=== PATIENT | female | born 1995 | race Caucasian/White ===

== ENCOUNTER 2020-03-05 10:41 | Outpatient (RCR) | payer OTHER, SELFPAY | END 2020-06-03 23:59 | disposition home or self-care (01) | LOC: ANHLAB 10:41 | PROVIDERS: Visit Provider Advanced Practice Midwife | DX: O46.90 Antepartum hemorrhage, unspecified, unspecified trimester (principal); Z3A.00 Weeks of gestation of pregnancy not specified | CPT/HCPCS: 36415; 85461 ==

== ENCOUNTER 2020-03-23 12:56 | Emergency (ER) | payer OTHER, SELFPAY ==
[2020-03-23 13:16] VITALS: BP 135/85; PULSE 78; RESP 20; TEMP 36.6; O2SAT 100
--- NOTE | 2020-03-23 13:16 | ED.GENADULT ---
HPI - General Adult General Chief complaint: Extremity Injury, Upper Stated complaint: Extremity injury, upper Time Seen by Provider: 03/23/20 13:17 Source: patient Mode of arrival: ambulatory Limitations: no limitations History of Present Illness HPI narrative: 25-year-old female patient presents to the [facility] with complaints of a fishhook that got caught into her right upper arm early this morning while fishing. Patient states that they did get the hook out last night however she states that she is about 8 or 9 weeks and knows that her tetanus is outdated and wanted a tetanus shot today. Patient states that she was fishing and that the hope that did get caught into her arm had been in the [place] along with being in the current fish that they had caught. Patient states was as they are trying to get the fish off 1 of the hooks came and embedded into her right upper arm. Patient denies any fevers, body aches or chills. Patient states she cleaned the area with peroxide and put a little antibiotic ointment on it last night. Related Data Allergies Allergy/AdvReac Type Severity Reaction Status Date / Time No Known Allergies Allergy Verified 03/23/20 13:19 Review of Systems Review of Systems: Narrative: CONSTITUTIONAL: Denies fever, chills, or sweats. EYES: Denies visual changes, redness, or discharge. ENT: Denies rhinorrhea, congestion, sore throat, or otalgia. CARDIOVASCULAR: Denies chest pain, palpitations, or edema. RESPIRATORY: Denies cough or dyspnea. GASTROINTESTINAL: Denies abdominal pain, nausea, vomiting, or diarrhea. GENITOURINARY: Denies dysuria or hematuria. SKIN: Denies rash or itching. Positive wound to right upper arm from fishhook MUSCULOSKELETAL: Denies back pain, joint pain, or myalgia. NEUROLOGIC: Denies headache, numbness, or weakness. PSYCHIATRIC: Denies anxiety or depression. PMFSH Social History Social History Gender identity (if verbalized by the patient): Female Comments At the time of my signature I agree with nursing past medical history, surgical, social, and family history. There is no relevant family history pertinent to the presenting complaint. Exam Narrative: Exam Narrative: GENERAL: Well-appearing, well-nourished, and in no acute distress. HEAD: Normocephalic, atraumatic. EYES: PERRLA and EOMI. ENT: Nares clear, no rhinorrhea or epistaxis. Mucous membranes moist. NECK: Supple. No lymphadenopathy CHEST: Clear to auscultation. No respiratory distress. HEART: Regular rate and rhythm. No murmur heard. Normal peripheral pulses. ABDOMEN: Soft, nontender, nondistended, normal active bowel sounds. EXTREMITIES: Normal range of motion. No edema. SKIN: Warm, dry, no rash. Patient has 2 puncture [place] noted to the right upper extremity on the inner aspect of the right upper arm. There is slight redness noted but no warmth. No discharge noted. On palpation there is no evidence of a foreign body. No pain on palpation and patient has excellent range of motion of the arm. NEURO: No focal deficits. Alert and oriented x3. Course Vital Signs Vital signs: Vital Signs Temperature 36.6 C 03/23/20 13:16 Pulse Rate 78 03/23/20 13:16 Respiratory Rate 20 03/23/20 13:16 Blood Pressure 135/85 03/23/20 13:16 Pulse Oximetry 100 03/23/20 13:16 Temperature 36.6 C 03/23/20 13:16 Pulse Rate 78 03/23/20 13:16 Respiratory Rate 20 03/23/20 13:16 Blood Pressure 135/85 03/23/20 13:16 Pulse Oximetry 100 03/23/20 13:16 Vital signs reviewed. Medical Decision Making Differential Diagnosis Differential Diagnosis: Differential diagnosis: Abscess, cellulitis, hidradenitis, laceration, puncture wound. Discussed with patient that we will go ahead and update her tetanus shot today. Discussed with her that I would also like to put her on some antibiotics due to the fact that she did get punctured in the arm with a
[2020-03-23] MEDS: TETANUS,DIPHTHERIA,AC PERTUSSIS ADULT (0.5 ML) BOOSTRIX IM (13:24)
== END 2020-03-23 13:44 | disposition home or self-care (01) ==
PROVIDERS: Emergency Provider Nurse Practitioner Family
DX: O9A.211 Injury, poisoning and certain other consequences of external causes complicating pregnancy, first trimester (principal); Z3A.00 Weeks of gestation of pregnancy not specified; S41.131A Puncture wound without foreign body of right upper arm, initial encounter; W45.8XXA Other foreign body or object entering through skin, initial encounter; Z23 Encounter for immunization
CPT/HCPCS: 90471; 90715; 99213; G0463

== ENCOUNTER → 2020-10-02 14:09 | Outpatient (CLI) | payer OTHER, SELFPAY ==
--- NOTE | ~2020-10-02 | US_ITS ---
EXAMINATION: US OB follow up EXAM DATE: 10/02/2020 14:40 INDICATION: horseshoe kidney f/u, SERJIO presentation. 3rd trimester. TECHNIQUE: Pelvic obstetrical transabdominal sonogram was performed by a technologist. There are mu ltiple grayscale and Doppler images available for interpretation. There are no earlier studies of th is gestation for comparison. FINDINGS: There is a single fetus identified in vertex presentation with a heart rate of 169 beats pe r minute. The placenta is located in the fundal position. There is no sonographic evidence of retrop lacental hemorrhage identified. The amniotic fluid index is 15.7 centimeters, which is normal. BIOMETRIC DATA: Biparietal diameter (BPD): 9.2cm ----------------> 37 weeks 1 day. Head circumference (HC): 32.4 cm ----------------> 36 weeks 4 days. Abdominal circumference (AC): 33.5 cm ----------> 37 weeks 3 days. Femur length (FL): 6.7 cm --------------------------> 35 weeks 3 days. These measurements are concordant. HC/AC ratio is 0.97 (The 5th -- 95th percentile range is 0.92-1.06. Estimated weight is 3042 g +/- 456 g. This is the 58th percentile when the currently reported clinical gestation age of 310/25/2020, clinical estimated date of delivery (JOSIAH-OPE) 36 weeks 5 days is used. estimated gestational age based on measurements from this exam is also 36 weeks 5 days, with an estimated date of delivery (JOSIAH-AUA) 10/25. IMPRESSION: 1. Single fetus in vertex presentation with heart rate 169 beats per minute. 2. Estimated weight of 3042 grams, 58th percentile using the currently reported clinical gesta tion age of 36 weeks 5 days, JOSIAH(OPE) 10/25. 3. Normal SERJIO 15.7 cm. Reviewed, dictated and finalized at location B. ATTENDANT IMPRESSION: 1. Single fetus in vertex presentation with heart rate 169 beats per minute. 2. Estimated weight of 3042 grams, 58th percentile using the currently r eported clinical gestation age of 36 weeks 5 days, JOSIAH(OPE) 10/25. 3. Normal SERJIO 15.7 cm.
== END ==
PROVIDERS: Visit Provider Obstetrics & Gynecology
DX: Q63.1 Lobulated, fused and horseshoe kidney (principal)
CPT/HCPCS: 76816

== ENCOUNTER 2020-10-18 23:26 | Inpatient (IN) | payer OTHER, SELFPAY ==
[2020-10-19] VITALS (122 sets, daily range): BP systolic 93–132; BP diastolic 52–93; PULSE 58–152; RESP 16; TEMP 36.3–37.6; O2SAT 79–100; BMI 37.7
[2020-10-19 01:11] LABS: Basophils Percent Auto 0.3 % (0.2-1.2); Eosinophils Absolute Auto 0.1 K/mm3 (0-0.3); Eosinophils Percent Auto 0.6 % (0-4.4); Hematocrit 34.1 % (37.0-47.0); Hemoglobin 11.3 g/dL (12.0-15.0); Immature Granulocyte Absolute 0.11 K/mm3 (0.00-0.031); Immature Granulocyte Percent A 0.9 % (0-0.5); Lymphocytes Absolute Auto 2.69 K/mm3 (0.9-3.2); Lymphocytes Percent Auto 23.1 % (18.3-44.2); Mean Corpuscular HGB Conc 33.1 g/dl (32-36); Mean Corpuscular Hemoglobin 30.9 pg (26-34); Mean Corpuscular Volume 93.2 fl (80-100); Mean Platelet Volume 11.6 fl (7.4-10.4); Monocytes Percent Auto 8.4 % (2.6-8.5); Neutrophils Absolute Auto 7.8 K/mm3 (1.3-6.7); Neutrophils Percent Auto 66.7 % (45.5-73.1); Platelet Count Result 184 k/mm3 (150-375); Red Blood Count 3.66 M/mm3 (4.2-5.4); Red Cell Distribution Width 12.4 % (11.5-14.5); White Blood Count 11.6 K/mm3 (4.5-10.0)
--- NOTE | 2020-10-19 01:33 | LDADM ---
This patient, Elva Bliss, was admitted to Labor/Delivery/Recovery 105 on 10/18/20 at 23:26. Plans for labor, pain management and were discussed with patient. Patient/family oriented to hospital policies and general routines including ID bracelet, bed and alarms, visiting hours, pain management, procedures, bathroom and other care routines, personal items, smoking policy, room service/diet and guest tray routines, infant security routines, and visiting hours. Patient/Family are encouraged to report perceived risks to care and to ask questions if they do not understand what they are told or what they should do. See OBIX for further documentation.
[2020-10-19] MEDS: LACTATED RINGERS 1,000 ML 125 ML IV CONT ×3 (07:26→11:14)
[2020-10-19] MEDS: OXYTOCIN 30 UNITS/NS 500 ML 30 UNITS/500 ML BAG IV CONT (07:27)
--- NOTE | 2020-10-19 07:48 | WPDANESEPP ---
Anes - Eval Pre Procedure Procedure: labor epidural Date/Time: 10/19/20 07:48 Pre Op Diagnosis: Leaking fluid Patient Data Age: 25 Gender: F Height: 1.68 m Weight: 106 kg Last Vital Signs Temp 36.9 C 10/19/20 01:00 Pulse 83 10/19/20 07:35 BP 111/68 10/19/20 07:35 Allergies Allergy/AdvReac Type Severity Reaction Status Date / Time No Known Allergies Allergy Verified 03/23/20 13:19 Home Medications Medication Instructions Recorded Confirmed Type PNV cmb#95-ferrous fumarate-FA 1 tablet PO DAILY 09/30/20 09/30/20 History [] Laboratory Tests 10/19/20 10/19/20 10/19/20 01:05 01:05 01:05 WBC 11.6 K/mm3 H K/mm3 (4.5-10.0) RBC 3.66 M/mm3 L M/mm3 (4.2-5.4) Hgb 11.3 g/dL L g/dL (12.0-15.0) Hct 34.1 % L % (37.0-47.0) MCV 93.2 fl fl (80-100) MCH 30.9 pg pg (26-34) MCHC 33.1 g/dl g/dl (32-36) RDW 12.4 % % (11.5-14.5) Plt Count 184 k/mm3 k/mm3 (150-375) MPV 11.6 fl H fl (7.4-10.4) Immature Gran % (Auto) 0.9 % H % (0-0.5) Neut % (Auto) 66.7 % % (45.5-73.1) Lymph % (Auto) 23.1 % % (18.3-44.2) [place] % (Auto) 8.4 % % (2.6-8.5) Eos % (Auto) 0.6 % % (0-4.4) Baso % (Auto) 0.3 % % (0.2-1.2) Lymph # (Auto) 2.69 K/mm3 K/mm3 (0.9-3.2) [place] # (Auto) 1.0 K/mm3 H K/mm3 (0.1-0.6) Eos # (Auto) 0.1 K/mm3 K/mm3 (0-0.3) Baso # (Auto) 0.0 K/mm3 K/mm3 (0.0-0.1) Abs Immat Gran (auto) 0.11 K/mm3 H K/mm3 (0.00-0.031) Absolute Neuts (auto) 7.8 K/mm3 H K/mm3 (1.3-6.7) Absolute Nucleated RBC 0.0 K/mm3 K/mm3 (0.0-0.012) Nucleated RBC % 0.0 % % (0.0-0.2) RPR Pending Blood Type A Positive Antibody Screen Negative Patient hx anesthesia problems: none Family hx anesthesia problems: none PMFSH Family History Family History Other No pertinent family history Social History Social History Years smoked: 6 Smoking status: Former smoker Substance use: never Gender identity (if verbalized by the patient): Female Spiritual care concerns: No Exam Day of Procedure 10/19/20 07:48 Patient weight: obese Heart: regular rate and rhythm Lungs: clear to auscultation Airway: Mallampati scale class II Neurological: alert and oriented
--- NOTE | 2020-10-19 07:59 | PM.IMHP ---
H&P: HPI History of Present Illness Date/Time: 10/19/20 07:59 1 para 0 whose last menstrual period was 12/26/2019, EDC is 10/25/2020, confirmed by 11 week visit presents at 39 weeks gestation with rupture of membranes. has been complicated by the baby having enough horseshoe kidney. There appears to be normal growth and otherwise normal findings. Chief Complaint: srom Review of Systems Review of Systems: All systems reviewed & are unremarkable except as noted in HPI and below PMFSH Family History Family History Other No pertinent family history Social History Social History Years smoked: 6 Smoking status: Former smoker Substance use: never Gender identity (if verbalized by the patient): Female Spiritual care concerns: No Meds Home Medications and Allergies Home Medications Medication Instructions Recorded Confirmed Type PNV cmb#95-ferrous fumarate-FA 1 tablet PO DAILY 09/30/20 09/30/20 History [] Allergies Allergy/AdvReac Type Severity Reaction Status Date / Time No Known Allergies Allergy Verified 03/23/20 13:19 Vital Signs Vital Signs - 24 hr 10/19/20 00:16 10/19/20 00:31 10/19/20 01:00 Temperature 98.4 F Pulse Rate 93 88 Blood Pressure 103/64 116/70 10/19/20 07:26 10/19/20 07:35 Temperature Pulse Rate 85 83 Blood Pressure 122/76 111/68 Exam Const: General: no acute distress Eyes: General: appearance normal, both eyes and all related structures Neck: Neck: supple and no JVD Thyroid: thyroid normal Resp: Effort & Inspection: normal respiratory effort Auscultation: clear to auscultation bilaterally Cardio: Rate: regular rate Rhythm: regular rhythm GI: Inspection: non-distended GI Palp: Yes Soft to palpation, No Tenderness to palpation present (GI) and No Guarding due to palpation present (GI) Auscultation: normal bowel sounds : General: Yes bladder normal to palpation External Female Exam: normal external appearance Speculum Exam - Vagina: normal appearance of the vagina, normal vaginal discharge and No vaginal bleeding Speculum Exam - Cervix: Cervical os closed ( Cervix 3cm by RN exam. Clear fluid seen. FHTs were reassuring) and nontender Bimanual exam- vagina & uterus: bladder normal to palpation and No Cervical tenderness present OB/external & speculum: No vaginal bleeding Skin: General skin exam: no rashes or lesions noted Extrem: General: normal to inspection and no edema Psych: Mental Status: mental status grossly normal Affect: normal affect H&P: Results Labs Labs: Short CBC 10/19/20 Range/Units 01:05 WBC 11.6 H (4.5-10.0) K/mm3 Hgb 11.3 L (12.0-15.0) g/dL Hct 34.1 L (37.0-47.0) % Plt Count 184 (150-375) k/mm3 Assessment and Plan Additional Plan impression term in active labor Plan: Pitocin augmentation begun. Spontaneous vaginal delivery is expected. She has an epidural candidate at
[2020-10-19] MEDS: fentaNYL CITRATE INJ (*CRX) 100 MCG/2 ML VIAL 50 MCG IV PUSH (08:49)
--- NOTE | 2020-10-19 15:37 | P.PCNOB_ITS ---
OB - Delivery Note Procedure Delivery date: 10/19/20 Intrapartal events: None Induction method: none Delivery augmentation: pitocin Delivery monitor: external FHT Route of delivery: Episiotomy description: None Laceration Description: None Specimen: No Quantitative Blood Loss (ml): 58 Disposition: floor [place] Baby Date of : 10/19/20 Time of : 15:27 Weeks of gestation at delivery: 39 gender: Female presentation: vertex position: Right Occiput Anterior Placenta delivery description: Spontaneous cord vessel description: 3 Vessels and Nuchal Cord score one minute: 9 score five minutes: 9
[2020-10-19] MEDS: OXYTOCIN 30 UNITS/NS 500 ML 30 UNITS/500 ML BAG 125 UNITS IV CONT (16:04)
[2020-10-19] MEDS: WITCH HAZEL 40 PADS 1 PAD TOPICAL (17:21)
[2020-10-19] MEDS: IBUPROFEN 600 MG TABLET PO (17:21)
[2020-10-19] MEDS: BENZOCAINE 20% AER SPR (*SP) 56 GM CAN 1 SPRAY TOPICAL (17:21)
[2020-10-20] MEDS: IBUPROFEN 600 MG TABLET PO ×3 (00:24→15:34)
[2020-10-20 00:30] VITALS: BP 116/74; PULSE 87; RESP 14; TEMP 36.7; O2SAT 98
--- NOTE | 2020-10-20 01:51 | PC.NURSE ---
Breast pump provided due to using nipple shield and ineffective feeding. Instructions given on breast pump care and usage, pumping schedule, nipple care, and collection and storage of breast milk. Encouraged [id number], breast massage and manual expression to stimulate supply. Pumping log provided and reviewed. Assessed patient for correct flange size, placement and draw. Patient verbalizes and demonstrates understanding of instructions.
[2020-10-20 03:35] VITALS: BP 108/57; PULSE 83; RESP 14; TEMP 36.8; O2SAT 99
--- NOTE | 2020-10-20 04:02 | PC.NURSE ---
Daylight Savings Time 10/20/20 0159 For Daylight Savings Time Beginning in the Spring - Clocks are moved ahead. For [facility], the time of change occurs at 0200 hrs. Time is taken from the kitchen food server. This entry on the patient's chart recognizes the change in time reflected during documentation. Example: 2 entries for vital signs may be charted for 0200 hrs.
[2020-10-20 04:39] LABS: Hematocrit 31.2 % (37.0-47.0); Hemoglobin 10.1 g/dL (12.0-15.0)
--- NOTE | 2020-10-20 07:19 | PM.OBPNVD ---
OB - PN: Subj Subjective Date/time seen: 10/20/20 07:19 Patient comments: no complaints and pain well controlled baby status: doing well and nursing well OB - PN: Obj Data Labs CBC & Chem 7: 10/20/20 03:42 Labs: Laboratory Results - last 24 hr 10/20/20 03:42 Hgb 10.1 L Hct 31.2 L OB - PN A/P Plan day: 1 Plan: routine care Time Spent With Patient Time: Total time spent is greater than 50% in coordination of care (as documented) at patient's floor/unit and/or counseling patient: Time with patient: less than 15 minutes Review of Systems Review of Systems: All systems reviewed & are unremarkable except as noted in HPI and below Exam Const: General: no acute distress Eyes: General: appearance normal, both eyes and all related structures Neck: Neck: supple and no JVD Thyroid: thyroid normal Resp: Effort & Inspection: normal respiratory effort Auscultation: clear to auscultation bilaterally Cardio: Rate: regular rate Rhythm: regular rhythm GI: Inspection: non-distended GI Palp: Yes Soft to palpation, No Tenderness to palpation present (GI) and No Guarding due to palpation present (GI) Auscultation: normal bowel sounds : General: Yes bladder normal to palpation External Female Exam: normal external appearance Speculum Exam - Vagina: normal vaginal discharge and No vaginal bleeding Speculum Exam - Cervix: nontender Bimanual exam- vagina & uterus: bladder normal to palpation and No Cervical tenderness present OB/external & speculum: No vaginal bleeding Skin: General skin exam: no rashes or lesions noted Extrem: General: normal to inspection and no edema Psych: Mental Status: mental status grossly normal Affect: normal affect
[2020-10-20 08:07] VITALS: BP 120/63; PULSE 80; RESP 18; TEMP 36.4
--- NOTE | 2020-10-20 14:58 | WPDANLDPN2 ---
Anes-Prog Note L&D Date/Time: 10/20/20 14:58 Comfortable throughout: labor and delivery Neuraxial method: epidural Epidural/Spinal procedure site: clean & non-tender Neuro status: Neuro function grossly intact. Cardiovascular status: normal Respiratory status: normal Airway patency: baseline Mental status: baseline Post-Op hydration status: normal Vital Signs: Last Vital Signs Temp 36.4 C 10/20/20 08:07 Pulse 80 10/20/20 08:07 Resp 18 10/20/20 08:07 BP 120/63 10/20/20 08:07 Pulse Ox 99 10/20/20 03:35 Pain score (VAS): no complaints I/O: Intake & Output 10/19/20 10/20/20 10/20/20 22:59 07:59 15:59 Intake Total Balance Post-procedural complaints: none Patient feedback: Patient satisfied with anesthetic care.
--- NOTE | 2020-10-20 17:10 | PC.NURSE ---
Patient instructed to view the discharge video Mother & Baby Care, The First Two Weeks online. Patient was given the opportunity and encouraged to ask questions. Patient verbalized understanding of information shared and has been given the mother/baby guide for home reference.
[2020-10-20 19:27] VITALS: BP 121/72; PULSE 89; RESP 16; TEMP 36.6; O2SAT 100
[2020-10-21] MEDS: IBUPROFEN 600 MG TABLET PO ×2 (03:30→09:39)
--- NOTE | 2020-10-21 05:43 | PM.OBPNVD ---
OB - PN: Subj Subjective Date/time seen: 10/21/20 05:43 Patient comments: no complaints and pain well controlled baby status: doing well and nursing well OB - PN: Obj Data Labs CBC & Chem 7: 10/20/20 03:42 OB - PN A/P Plan day: 2 Plan: routine care, discharge home and follow up 6 weeks Time Spent With Patient Time: Total time spent is greater than 50% in coordination of care (as documented) at patient's floor/unit and/or counseling patient: Time with patient: less than 15 minutes Review of Systems Review of Systems: All systems reviewed & are unremarkable except as noted in HPI and below Exam Const: General: no acute distress Eyes: General: appearance normal, both eyes and all related structures Neck: Neck: supple and no JVD Thyroid: thyroid normal Resp: Effort & Inspection: normal respiratory effort Auscultation: clear to auscultation bilaterally Cardio: Rate: regular rate Rhythm: regular rhythm GI: Inspection: non-distended GI Palp: Yes Soft to palpation, No Tenderness to palpation present (GI) and No Guarding due to palpation present (GI) Auscultation: normal bowel sounds : General: Yes bladder normal to palpation External Female Exam: normal external appearance Speculum Exam - Vagina: normal vaginal discharge and No vaginal bleeding Speculum Exam - Cervix: nontender Bimanual exam- vagina & uterus: bladder normal to palpation and No Cervical tenderness present OB/external & speculum: No vaginal bleeding Skin: General skin exam: no rashes or lesions noted Extrem: General: normal to inspection and no edema Psych: Mental Status: mental status grossly normal Affect: normal affect
--- NOTE | 2020-10-21 05:45 | P.DS_ITS ---
DS: Admitting Diagnosis Admitting Diagnosis Admitting Diagnosis: term iup DS: Summary Hospital Course Hospital Course: The patient was admitted in the active labor. She underwent spontaneous vaginal delivery. Her hospital course was unremarkable. She remained afebrile. She was , voiding without difficulty, ambulating generally without complaints Time Spent with Patient Time attestation: Total time spent providing and/or coordinating discharge services: Exam Const: General: no acute distress Eyes: General: appearance normal, both eyes and all related structures Neck: Neck: supple and no JVD Thyroid: thyroid normal Resp: Effort & Inspection: normal respiratory effort Auscultation: clear to auscultation bilaterally Cardio: Rate: regular rate Rhythm: regular rhythm GI: Inspection: non-distended GI Palp: Yes Soft to palpation, No Tenderness to palpation present (GI) and No Guarding due to palpation present (GI) Auscultation: normal bowel sounds : General: Yes bladder normal to palpation External Female Exam: normal external appearance Speculum Exam - Vagina: normal vaginal discharge and No vaginal bleeding Speculum Exam - Cervix: nontender Bimanual exam- vagina & uterus: bladder normal to palpation and No Cervical tenderness present OB/external & speculum: No vaginal bleeding Skin: General skin exam: no rashes or lesions noted Extrem: General: normal to inspection and no edema Psych: Mental Status: mental status grossly normal Affect: normal affect Discharge Plan Discharge Attending physician on discharge: Blayne Gonzalez Consulting providers: Evaristo Huggins Discharging Clinician: Blayne Gonzalez Patient Disposition: Home, Self-Care Activity: may shower, no straining, may drive after 2 weeks and pelvic rest Diet: heart healthy Wound Care Instructions: follow printed instructions Patient Instructions: Antibiotic Form Stand Alone Forms: General Discharge Information Follow-up/Referrals: Blayne Gonzalez MD [Physician] - Discharge Medications: Continued PNV cmb#95-ferrous fumarate-FA [] 28 mg iron- 800 mcg Tablet 1 tablet PO DAILY RF: 0 Date of admission: 10/18/20 23:26 Primary Care Provider: PHYSICIAN,COTTAGE SUPERVISOR Admitting Provider: Joselito Morin Attending physician on admission: Joselito Morin Condition: Stable
[2020-10-21 07:17] LABS: Rapid Plasma Reagin Non-Reactive (NonReactive)
[2020-10-21 07:30] VITALS: BP 117/64; PULSE 75; RESP 16; TEMP 36.9; O2SAT 99
[2020-10-21] MEDS: MEASLES,MUMPS,RUBELLA VACCINE 0.5 ML VIAL SUB-Q (09:40)
[2020-10-22 11:15] VITALS: BP 130/81; PULSE 71; RESP 18; TEMP 37.1; O2SAT 100
== END 2020-10-21 11:35 | disposition home or self-care (01) | DRG 807 ==
LOC: ANHOB2 10-21 09:54 → ANHLDR 10-22 13:38 → ANHOB2 10-22 13:38
PROVIDERS: Admitting Provider Obstetrics & Gynecology; Visit Provider Obstetrics & Gynecology
DX: O69.81X0 Labor and delivery complicated by cord around neck, without compression, not applicable or unspecified (principal); Z37.0 Single live birth; Z3A.39 39 weeks gestation of pregnancy; O36.8330 Maternal care for abnormalities of the fetal heart rate or rhythm, third trimester, not applicable or unspecified; O99.214 Obesity complicating childbirth; E66.9 Obesity, unspecified
CPT/HCPCS: 36415; 85014; 85018; 85025; 86592; 86850; 86900; 86901; 90710; A9270; J2590; J2795; J3010; J7120

== ENCOUNTER 2024-07-03 15:53 | Outpatient (CLI) | payer BC, SELFPAY ==
--- NOTE | ~2024-07-03 | MR_ITS ---
EXAMINATION: MR lumbar spine wo con DATE: 07/03/2024 16:44 INDICATION: Lumbar disc syndrome. TECHNIQUE: Magnetic resonance imaging (MRI) of the lumbar spine was performed without intravenous con trast. Sequences included sagittal T2-weighted FSE, sagittal T2-weighted FS FSE, sagittal T1-weighted FSE, and axial T2-weighted FSE. COMPARISON: None FINDINGS: Bone alignment normal. Vertebral body heights are normal. There is mildly decreased disc he ight at L3-L4 and moderately decreased disc height at L4-L5 and L5-S1. The distal spinal cord signal intensity is normal. The conus medullaris is at T12. The following disc levels are specifically discu ssed: L1-L2: There is a central protrusion. There is mild bilateral facet joint osteoarthritis. There is no neural foraminal stenosis. There is mild central canal stenosis. L2-L3: The disc does not extend beyond the endplate margin. There is mild bilateral facet joint osteo arthritis. There is no neural foraminal stenosis. There is no central canal stenosis. L3-L4: The disc is bulging and has an annular fissure. There is moderate bilateral facet joint osteoa rthritis. There is mild right neural foraminal stenosis. There is mild central canal stenosis. L4-L5: The disc is bulging and has an annular fissure. There is severe right and moderate left facet joint osteoarthritis. There is mild bilateral neural foraminal stenosis. There is mild central canal stenosis. There is moderate left neural foraminal stenosis. L5-S1: The disc is bulging and has an annular fissure. There is mild bilateral facet joint osteoarthr itis. There is mild bilateral neural foraminal stenosis. There is mild central canal stenosis. IMPRESSION: 1. Moderate lumbar spondylosis. Reviewed, dictated and finalized at location A. N CHAIN OPERATOR
== END 2024-07-03 15:54 | disposition home or self-care (01) ==
PROVIDERS: Visit Provider Chiropractor
DX: M47.816 Spondylosis without myelopathy or radiculopathy, lumbar region (principal)
CPT/HCPCS: 72148